=== PATIENT | male | born 1945 | race Caucasian/White ===

== ENCOUNTER 2017-06-22 12:29 | Emergency (ER) | payer MEDICAID, MEDICARE ==
[2017-06-22] MEDS ORDERED: Albuterol/Ipratropium 3.0-0.5 MG/3 ML Neb Soln NEB ONE (12:40)
[2017-06-22] MEDS ORDERED: Sodium Chloride 0.9% 1,000 ML IV SCH (12:45)
--- NOTE | 2017-06-22 12:46 | EDM.PDOC ---
ED HPI GENERAL MEDICAL PROBLEM - General Chief Complaint: General Stated Complaint: FROM DIALYSIS / NOT FEELING WELL Time Seen by Provider: 06/22/17 12:37 Source of Information: Reports: Patient, RN History Limitations: Reports: No Limitations - History of Present Illness INITIAL COMMENTS - FREE TEXT/NARRATIVE: 71 yo white male sent from dialysis for low oxygen saturation of 70's. Pt. did not get dialysis yet. PMHx. CVA Onset: Today Onset Date: 06/22/17 Onset Time: 12:30 Duration: Minutes: Location: Reports: Generalized Severity: Moderate Improves with: Reports: None Worsens with: Reports: None Context: Reports: Other (CKD) Associated Symptoms: Reports: Confusion - Related Data Allergies Allergy/AdvReac Type Severity Reaction Status Date / Time No Known Allergies Allergy Verified 06/22/17 13:00 Home Meds: Home Meds Calcitriol 0.5 mcg PO DAILY 01/08/15 [History] Clopidogrel [Plavix] 75 mg PO DAILY 01/08/15 [History] Digoxin 125 mcg PO DAILY 01/08/15 [History] Furosemide 40 mg PO DAILY 01/08/15 [History] Insulin Glargine,Hum.Rec.Anlog [Lantus Solostar] 27 unit SQ BEDTIME 01/08/15 [ History] Isosorbide Mononitrate [Isosorbide Mononitrate ER] 60 mg PO BID 01/08/15 [ History] Metoprolol Tartrate 150 mg PO BID 01/08/15 [History] NIFEdipine [Nifedical XL] 60 mg PO DAILY 01/08/15 [History] atorvaSTATin [Lipitor] 1 tab PO DAILY 01/08/15 [History] Aspirin 81 mg PO DAILY 04/22/15 [History] Multivitamin with Minerals [Multiple Vitamin] 1 tab PO DAILY 04/22/15 [History] Sevelamer Carbonate [Renvela] 1,600 mg PO TID 04/22/15 [History] hydrALAZINE [Apresoline] 50 mg PO BID 04/22/15 [History] Past Medical History Other Gastrointestinal History: right inguinal hernia Social & Family History - Tobacco Use Smoking Status *Q: Never Smoker Second Hand Smoke Exposure: No - Alcohol Use Days Per Week of Alcohol Use: 0 - Recreational Drug Use Recreational Drug Use: No - Living Situation & Occupation Living situation: Reports: Single, with Family Occupation: Retired ED ROS GENERAL - Review of Systems Review Of Systems: See Below Constitutional: Reports: Malaise, Weakness, Fatigue HEENT: Reports: No Symptoms Respiratory: Reports: Other (low pulse ox) Cardiovascular: Reports: No Symptoms Endocrine: Reports: No Symptoms GI/Abdominal: Reports: No Symptoms : Reports: No Symptoms Musculoskeletal: Reports: No Symptoms Skin: Reports: No Symptoms Neurological: Reports: No Symptoms Psychiatric: Reports: No Symptoms Hematologic/Lymphatic: Reports: No Symptoms Immunologic: Reports: No Symptoms ED EXAM, GENERAL - Physical Exam Exam: See Below Exam Limited By: No Limitations General Appearance: Alert, No Apparent Distress Eye Exam: Bilateral Eye: PERRL Ears: Normal External Exam Nose: Normal Inspection Throat/Mouth: Normal Inspection Head: Atraumatic, Normocephalic Neck: Normal Inspection Respiratory/Chest: No Respiratory Distress, Normal Breath Sounds, No Accessory Muscle Use, Chest Non-Tender GI/Abdominal: Normal Bowel Sounds Back Exam: Normal Inspection Extremities: Normal Inspection Neurological: Alert, Oriented Psychiatric: Normal Affect Skin Exam: Warm, Dry, Intact Lymphatic: No Adenopathy Course - Vital Signs Last Recorded V/S: Last Vital Signs Temp 37.4 C 06/22/17 12:41 Pulse 61 06/22/17 12:41 Resp 16 06/22/17 12:41 BP 177/62 H 06/22/17 12:41 Pulse Ox 75 L 06/22/17 12:41 - Orders/Labs/Meds Orders: Active Orders 24 hr Category Date Time Status EKG Documentation Completion [RC] STAT Care 06/22/17 12:39 Active RT Aerosol Therapy [RC] ASDIRECTED Care 06/22/17 12:40 Active B-TYPE NATRIURETIC PEPTIDE,BNP [CHEM] Stat Lab 06/22/17 14:13 Ordered LACTIC ACID [CHEM] Stat Lab 06/22/17 14:13 Ordered URINALYSIS W/MICROSCOPIC [UA W/MICROSCOPIC] [URIN] Stat Lab 06/22/17 13:07 Uncollected Sodium Chloride 0.9% [Normal Saline] 1,000 ml Med 06/22/17 12:45 Active IV ASDIRECTED Medication Orders Sodium Chloride (Normal Saline) 1,000 mls @ 50 mls/hr IV ASDIRECTED IVONNE Last Admin: 06/22/17 14:01 Dose: 50 mls/hr Labs: Laboratory Tests 1006/22/17 06/22/17 Range/Units 13:00 13:00 13:00 WBC 14.0 H (5.0-10.0) 10^3/uL RBC 3.06 L (4.6-6.2) 10^6/uL Hgb 10.0 L (14.0-18.0) g/dL Hct 31.7 L (40.0-54.0) % MCV 103.6 H D (80-100) fL MCH 32.7 (27.0-34.0) pg MCHC 31.5 L (33.0-35.0) g/dL Plt Count 180 D (150-450) 10^3/uL Neut % (Auto) 89.5 H (42.2-75.2) % Lymph % (Auto) 3.9 L (20.5-50.1) % [place] % (Auto) 6.4 (2-8) % Eos % (Auto) 0.1 L (1.0-3.0) % Baso % (Auto) 0.1 (0.0-1.0) % Sodium 138 (135-145) mmol/L Potassium 5.4 H (3.6-5.0) mmol/L Chloride 100 L (101-111) mmol/L Carbon Dioxide 25.0 (21.0-31.0) mmol/L Anion Gap 18.4 BUN 48 H (7-18) mg/dL Creatinine 6.4 H (0.6-1.3) mg/dL Est Cr Clr Drug Dosing 10.71 mL/min Estimated GFR (MDRD) 9 BUN/Creatinine Ratio 7.50 Glucose 190 H (74-105) mg/dL Calcium 8.8 (8.4-10.2) mg/dl Total Bilirubin 1.0 (0.2-1.0) mg/dL AST 16 (10-42) IU/L ALT 7 L (10-60) IU/L Alkaline Phosphatase 105 (42-121) IU/L Troponin I 0.08 H* (0.00-0.02) ng/ml Total Protein 6.8 (6.7-8.2) g/dl Albumin 3.5 (3.2-5.5) g/dl Globulin 3.3 Albumin/Globulin Ratio 1.06 Digoxin 1.4 (0-2.5) ng/ml Meds: Medications Generic Name Dose Route Start Last Admin Trade Name Juani PRN Reason Stop Dose Admin Sodium Chloride 1,000 mls @ 50 mls/hr 06/22/17 12:45 06/22/17 14:01 Normal Saline IV 50 mls/hr ASDIRECTED IVONNE Administration Discontinued Medications Generic Name Dose Route Start Last Admin Trade Name Juani PRN Reason Stop Dose Admin Albuterol/Ipratropium 3 ml 06/22/17 12:40 06/22/17 12:59 Duoneb 3.0-0.5 Mg/3 Ml NEB 06/22/17 12:41 3 ml ONETIME ONE Administration Departure - Departure Time of Disposition: 15:10 Disposition: DC/Tfer to Acute Hospital 02 Condition: Fair Clinical Impression: CKD (chronic kidney disease) requiring chronic dialysis Congestive heart failure Qualifiers: Congestive heart failure type: unspecified congestive heart failure type Congestive heart failure chronicity: unspecified congestive heart failure chronicity Qualified Code(s): I50.9 - Heart failure, unspecified - Discharge Information Forms: ED Department Discharge, Interfacility Transfer EMTALA - My Orders Last 24 Hours: My Active Orders 06/22/17 12:39 EKG Documentation Completion [RC] STAT 06/22/17 12:40 RT Aerosol Therapy [RC] ASDIRECTED 06/22/17 12:45 Sodium Chloride 0.9% [Normal Saline] 1,000 ml IV ASDIRECTED 06/22/17 13:07 URINALYSIS W/MICROSCOPIC [UA W/MICROSCOPIC] [URIN] Stat 06/22/17 14:13 B-TYPE NATRIURETIC PEPTIDE,BNP [CHEM] Stat LACTIC ACID [CHEM] Stat - Assessment/Plan Last 24 Hours: My Active Orders 06/22/17 12:39 EKG Documentation Completion [RC] STAT 06/22/17 12:40 RT Aerosol Therapy [RC] ASDIRECTED 06/22/17 12:45 Sodium Chloride 0.9% [Normal Saline] 1,000 ml IV ASDIRECTED 06/22/17 13:07 URINALYSIS W/MICROSCOPIC [UA W/MICROSCOPIC] [URIN] Stat 06/22/17 14:13 B-TYPE NATRIURETIC PEPTIDE,BNP [CHEM] Stat LACTIC ACID [CHEM] Stat
[2017-06-22 12:58] VITALS: BP 177/62
--- NOTE | 2017-06-22 14:30 | CR ---
Clinical history: 71-year-old male shortness of breath and oxygen saturation in the 70s. Interpretation: Abnormal. *Chronic cardiomegaly, pulmonary venous congestion and dependent subpulmonic pleural effusion right b ase with possible underlying atelectasis or lower lobe pneumonia on the right. Sternotomy wires and cardiac pacemaker (leads intact). Note: Left lung base relatively clearer than on 22 April 2015 exam but generalized relative increase venous congestion i.e. cardiovascular decompensation today. No lung mass lesion. No pneumothorax. CONCLUSION: CHF.
--- NOTE | 2017-06-26 10:14 | EKG ---
06/22/2017- TAMARA MCKENZIE I reviewed the EKG and appeared to be paced with possible AV node dissociation. Otherwise, I agree with the machine reading. [facility] /[id number]
== END 2017-06-22 16:18 ==
LOC: DL.ED 12:29
DX: I50.9 Heart failure, unspecified (principal); N18.6 End stage renal disease; Z79.899 Other long term (current) drug therapy
CPT/HCPCS: 36415; 71010; 80053; 80162; 84484; 85025; 93005; 94640; 96360; 96361; 99284; J7030; 93010

== ENCOUNTER 2017-08-31 16:36 | Emergency (ER) | payer MEDICARE ==
[2017-08-31 17:23] VITALS: BP 168/69
== END 2017-08-31 16:57 | disposition left against medical advice (07) ==
LOC: DL.ED 16:36
DX: Z53.21 Procedure and treatment not carried out due to patient leaving prior to being seen by health care provider (principal)

== ENCOUNTER 2017-11-12 15:47 | Emergency (ER) | payer MEDICAID, MEDICARE ==
--- NOTE | 2017-11-12 16:37 | EDM.PDOC ---
ED HPI GENERAL MEDICAL PROBLEM - General Chief Complaint: Eye Problems Stated Complaint[facility],BLURRY Time Seen by Provider: 11/12/17 16:20 Source of Information: Reports: Patient History Limitations: Reports: No Limitations - History of Present Illness INITIAL COMMENTS - FREE TEXT/NARRATIVE: This 72 yo male patient reports to the ED due to decreased vision in his left eye. The patient reports that he started to notice reduced vision 2-3 days ago, but then reports that it may have started quite some time ago. The patient reports things are very blurry out of his left eye. The patient reports he has noticed some drainage from his left eye over the past 2-3 days also. An initial call to the ED was placed from dialysis describing the patient as being in pain (intermittent) with vision loss in his left eye. The patient reports that his vision may have been getting worse over a longer amount of time, but could not give a timeline for when his symptoms actually started. The patient denied any pain in his left eye at the time of examination. Onset: Unknown/Unsure Duration: Constant, Getting Worse Quality: Reports: Other (vision decline in left eye) Severity: Severe Improves with: Reports: None Worsens with: Reports: None Context: Denies: Lifting, Sick Contact, Trauma - Related Data Allergies Allergy/AdvReac Type Severity Reaction Status Date / Time No Known Allergies Allergy Verified 11/12/17 17:00 Home Meds: Home Meds Calcitriol 0.5 mcg PO DAILY 01/08/15 [History] Clopidogrel [Plavix] 75 mg PO DAILY 01/08/15 [History] Digoxin 125 mcg PO DAILY 01/08/15 [History] Furosemide 40 mg PO DAILY 01/08/15 [History] Insulin Glargine,Hum.Rec.Anlog [Lantus Solostar] 27 unit SQ BEDTIME 01/08/15 [ History] Isosorbide Mononitrate [Isosorbide Mononitrate ER] 60 mg PO BID 01/08/15 [ History] Metoprolol Tartrate 150 mg PO BID 01/08/15 [History] NIFEdipine [Nifedical XL] 60 mg PO DAILY 01/08/15 [History] atorvaSTATin [Lipitor] 1 tab PO DAILY 01/08/15 [History] Aspirin 81 mg PO DAILY 04/22/15 [History] Multivitamin with Minerals [Multiple Vitamin] 1 tab PO DAILY 04/22/15 [History] Sevelamer Carbonate [Renvela] 1,600 mg PO TID 04/22/15 [History] hydrALAZINE [Apresoline] 50 mg PO BID 04/22/15 [History] Past Medical History HEENT History: Reports: Impaired Vision Cardiovascular History: Reports: CAD, Pacemaker, Prior Cardiac Arrest Other Cardiovascular History: Pt states that he is unsure if he had a heart attack or not- long scar noted to mid chest. Other Gastrointestinal History: right inguinal hernia Genitourinary History: Reports: Dialysis, Renal Disease Neurological History: Reports: CVA, Speech Problems Other Neuro History: States had stroke "a couple years ago." Endocrine/Metabolic History: Reports: Diabetes, Type II Hematologic History: Reports: Anemia - Past Surgical History Cardiovascular Surgical History: Reports: Pacer Social & Family History - Family History Family Medical History: Noncontributory - Tobacco Use Smoking Status *Q: Never Smoker Second Hand Smoke Exposure: No - Caffeine Use Caffeine Use: Reports: None - Alcohol Use Days Per Week of Alcohol Use: 0 - Recreational Drug Use Recreational Drug Use: No - Living Situation & Occupation Living situation: Reports: Single, with Family Occupation: Retired ED ROS GENERAL - Review of Systems Review Of Systems: ROS reveals no pertinent complaints other than HPI. ED EXAM GENERAL W FULL EYE - Physical Exam Exam: See Below Exam Limited By: No Limitations General Appearance: Alert, WD/WN, Mild Distress, Thin Eye Exam: Left Eye: Vision Changes (The patient has a cataract in the left eye making complete evaluation very difficult), Bilateral Eye: EOMI, Normal Inspection Eyelids: Right: Normal Appearance, Left: Edema (mild) Conjunctiva & Sclera: Right: Normal Appearance, Left: Injected Cornea Exam: Right: Normal Appearance, Left: Cloudy Cornea Extraocular Movements: Bilateral: Intact Pupils: Normal Accommodation Pupillary Size: Bilateral: 4 mm Pupillary Reaction: Bilateral: Brisk Ears: Normal External Exam, Normal Canal, Hearing Grossly Normal, Normal TMs Nose: Normal Inspection, Normal Mucosa, No Blood Throat/Mouth: Normal Inspection, Normal Lips, Normal Teeth, Normal Gums, Normal Oropharynx, Normal Voice, No Airway Compromise Head: Atraumatic, Normocephalic Neck: Normal Inspection, Supple, Non-Tender, Full Range of Motion Respiratory/Chest: No Respiratory Distress, Lungs Clear, Normal Breath Sounds, No Accessory Muscle Use, Chest Non-Tender Cardiovascular: Normal Peripheral Pulses, Regular Rate, Rhythm, No Edema, No Gallop, No JVD, No Murmur, No Rub GI/Abdominal: Normal Bowel Sounds, Soft, Non-Tender, No Organomegaly, No Distention, No Abnormal Bruit, No Mass (Male) Exam: Deferred Rectal (Males) Exam: Deferred Back Exam: Normal Inspection, Full Range of Motion, NT Extremities: Normal Inspection, Normal Range of Motion, Non-Tender, Normal Capillary Refill, No Pedal Edema Neurological: Alert, Oriented, CN II-XII Intact, Normal Cognition, Normal Gait, Normal Reflexes, No Motor/Sensory Deficits Psychiatric: Normal Affect, Normal Mood Skin Exam: Warm, Dry, Intact, Normal Color, No Rash Lymphatic: No Adenopathy Course - Vital Signs Last Recorded V/S: Last Vital Signs Temp 36.5 C 11/12/17 16:53 Pulse 65 11/12/17 16:53 Resp 12 11/12/17 16:53 BP 163/61 H 11/12/17 16:53 Pulse Ox 89 L 11/12/17 16:53 - Orders/Labs/Meds Labs: Laboratory Tests 11/12/17 11/12/17 Range/Units 16:30 16:30 WBC 8.7 (5.0-10.0) 10^3/uL RBC 4.03 L (4.6-6.2) 10^6/uL Hgb 13.0 L D (14.0-18.0) g/dL Hct 38.3 L (40.0-54.0) % MCV 95.0 D (80-100) fL MCH 32.3 (27.0-34.0) pg MCHC 33.9 (33.0-35.0) g/dL Plt Count 194 (150-450) 10^3/uL Neut % (Auto) 82.3 H (42.2-75.2) % Lymph % (Auto) 8.5 L (20.5-50.1) % [place] % (Auto) 7.4 (2-8) % Eos % (Auto) 1.6 (1.0-3.0) % Baso % (Auto) 0.2 (0.0-1.0) % Sodium 134 L (135-145) mmol/L Potassium 4.0 (3.6-5.0) mmol/L Chloride 100 L (101-111) mmol/L Carbon Dioxide 23.0 (21.0-31.0) mmol/L Anion Gap 15.0 BUN 22 H D (7-18) mg/dL Creatinine 2.6 H D (0.6-1.3) mg/dL Est Cr Clr Drug Dosing TNP Estimated GFR (MDRD) 24 BUN/Creatinine Ratio 8.46 Glucose 319 H (74-105) mg/dL Calcium 8.2 L (8.4-10.2) mg/dl Total Bilirubin 0.8 (0.2-1.0) mg/dL AST 15 (10-42) IU/L ALT 8 L (10-60) IU/L Alkaline Phosphatase 104 (42-121) IU/L Total Protein 6.6 L (6.7-8.2) g/dl Albumin 3.3 (3.2-5.5) g/dl Globulin 3.3 Albumin/Globulin Ratio 1.00 Departure - Departure Time of Disposition: 17:09 Disposition: Home, Self-Care 01 Condition: Fair Clinical Impression: Acute conjunctivitis of left eye Qualifiers: Acute conjunctivitis type: bacterial Qualified Code(s): H10.32 - Unspecified acute conjunctivitis, left eye - Discharge Information Instructions: Bacterial Conjunctivitis Forms: ED Department Discharge Care Plan Goals: The patient was advised of the examination, lab and CT results during the visit. The patient was given a script for Polytrim to place 1 drop into his left eye 4 times per day for 7 days. The patient should follow-up with his eye doctor as soon as possible. If the patient has any additional symptoms or concerns, the patient should follow-up with his primary care facility or return to the emergency department.
--- NOTE | 2017-11-12 16:49 | CT ---
Clinical history: 72-year-old male pain and visual changes left eye (conjunctivitis and cataracts). N o known trauma. Scan technique: Volume acquisition of data emergency unenhanced CT scan of the head and brain obtaine d with the patient lying supine on the Siemens multi slice CT scanner [place], [place]. All data archived in the PACS system for storage study (bone/brain windows). Interpretation: Abnormal. Uniformly thick bony calvarium without sign of skull fracture, underlying brain contusion or epidural /subdural hematoma. 2. Symmetric clear pneumatization of the paranasal and mastoid sinuses. 3. Large area of old infarct and encephalomalacia middle cerebral artery circulation, on the left, th at was present on previous exam of the head i.e. CT scan 08 Jan 2015. 4. Generalized moderate severe but symmetric cerebral cortical atrophy and underlying ventricular sys tem also unchanged. Physiologic midline pineal and symmetric normal choroid plexus calcifications. 5. No new signs of supratentorial or posterior fossa mass lesion. Cerebellum and brainstem unremarkab le. 6. No sign of acute new intracerebral, intraventricular or subarachnoid bleed. CONCLUSION: Chronic abnormalities primarily left cerebral hemisphere (see above) and atrophy unchange d since December 2014. No new signs of intracranial mass, hydrocephalus or bleed.
[2017-11-12 16:58] LABS: CHLORIDE,CL 100 mmol/L (101-111); SODIUM,NA 134 mmol/L (135-145)
[2017-11-12 16:59] VITALS: BP 163/61
== END 2017-11-12 17:25 | disposition home or self-care (01) ==
LOC: DL.ED 15:47
DX: H10.32 Unspecified acute conjunctivitis, left eye (principal); E11.9 Type 2 diabetes mellitus without complications; Z79.899 Other long term (current) drug therapy; Z79.82 Long term (current) use of aspirin; Z79.4 Long term (current) use of insulin
CPT/HCPCS: 36415; 70450; 80053; 85025; 99283; 99284

== ENCOUNTER 2018-02-01 12:01 | Emergency (ER) | payer MEDICARE ==
--- NOTE | 2018-02-01 12:09 | EDM.PDOC ---
ED HPI GENERAL MEDICAL PROBLEM - General Chief Complaint: Neurological Problem Stated Complaint: WEAKNESS. FROM DIALYSIS Time Seen by Provider: 02/01/18 12:08 Source of Information: Reports: Patient, Old Records, RN, RN Notes Reviewed, Other (dialysis nurses) History Limitations: Reports: Altered Mental Status - History of Present Illness INITIAL COMMENTS - FREE TEXT/NARRATIVE: Pt sent from dialysis with nurses reporting "pt is too unstable to have dialysis here today". Pt denies any complaints other than his chronic problems. The staff from the dialysis unit report the pt is weak, unsteady with balance, and confused. Pt is set up for dialysis 3 times a week but only attends about twice a week. He states he was in [place], but has return home to live on his own. Onset: Unknown/Unsure Duration: Constant Location: Reports: Generalized Severity: Severe Improves with: Reports: None Worsens with: Reports: None Associated Symptoms: Reports: No Other Symptoms - Related Data Allergies Allergy/AdvReac Type Severity Reaction Status Date / Time No Known Allergies Allergy Verified 02/01/18 12:20 Home Meds: Home Meds Calcitriol 0.5 mcg PO DAILY 01/08/15 [History] Clopidogrel [Plavix] 75 mg PO DAILY 01/08/15 [History] Digoxin 125 mcg PO DAILY 01/08/15 [History] Furosemide 40 mg PO DAILY 01/08/15 [History] Insulin Glargine,Hum.Rec.Anlog [Lantus Solostar] 27 unit SQ BEDTIME 01/08/15 [ History] Isosorbide Mononitrate [Isosorbide Mononitrate ER] 60 mg PO BID 01/08/15 [ History] Metoprolol Tartrate 150 mg PO BID 01/08/15 [History] NIFEdipine [Nifedical XL] 60 mg PO DAILY 01/08/15 [History] atorvaSTATin [Lipitor] 1 tab PO DAILY 01/08/15 [History] Aspirin 81 mg PO DAILY 04/22/15 [History] Multivitamin with Minerals [Multiple Vitamin] 1 tab PO DAILY 04/22/15 [History] Sevelamer Carbonate [Renvela] 1,600 mg PO TID 04/22/15 [History] hydrALAZINE [Apresoline] 50 mg PO BID 04/22/15 [History] Past Medical History HEENT History: Reports: Impaired Vision Cardiovascular History: Reports: CAD, Pacemaker, Prior Cardiac Arrest Other Cardiovascular History: Pt states that he is unsure if he had a heart attack or not- long scar noted to mid chest. Other Gastrointestinal History: right inguinal hernia Genitourinary History: Reports: Dialysis, Renal Disease Neurological History: Reports: CVA, Speech Problems Other Neuro History: States had stroke "a couple years ago." Psychiatric History: Reports: Dementia Endocrine/Metabolic History: Reports: Diabetes, Type II Hematologic History: Reports: Anemia - Past Surgical History Cardiovascular Surgical History: Reports: Pacer Social & Family History - Family History Family Medical History: Noncontributory - Caffeine Use Caffeine Use: Reports: None - Living Situation & Occupation Living situation: Reports: Single, with Family Occupation: Retired ED ROS GENERAL - Review of Systems Review Of Systems: Unable To Obtain (pt confused) ED EXAM, GENERAL - Physical Exam Exam: See Below Exam Limited By: Altered Mental Status General Appearance: Alert, Other (chronically ill appearing) Nose: Normal Inspection Throat/Mouth: Normal Voice, No Airway Compromise Head: Atraumatic, Normocephalic Neck: Normal Inspection, Full Range of Motion Respiratory/Chest: No Respiratory Distress, No Accessory Muscle Use, Decreased Breath Sounds, Crackles, Rales Cardiovascular: Regular Rate, Rhythm, No Edema GI/Abdominal: Normal Bowel Sounds, Soft, Non-Tender, No Distention. No: Guarding, Rigid, Rebound (Male) Exam: Deferred Rectal (Males) Exam: Deferred Back Exam: Normal Inspection Extremities: Normal Inspection Neurological: Alert, Confused, Memory Loss Recent Events, Other (oriented to person and place only. Generalized weakness, unsteady gait.) Psychiatric: Normal Mood Skin Exam: Warm, Dry, Pallor EKG INTERPRETATION EKG Date: 02/01/18 Time: 13:10 Rhythm: Other (PACED) Rate (Beats/Min): 91 Comparison: No Change Course - Vital Signs Last Recorded V/S: Last Vital Signs Temp 37.0 C 02/01/18 12:05 Pulse 97 02/01/18 12:05 Resp 16 02/01/18 12:05 BP 164/87 H 02/01/18 12:05 Pulse Ox 87 L 02/01/18 12:05 - Orders/Labs/Meds Orders: Active Orders 24 hr Category Date Time Status EKG 12 Lead [EKG Documentation Completion] [RC] STAT Care 02/01/18 12:32 Active Peripheral IV Care [RC] . DIRECTED Care 02/01/18 12:33 Active Chest 1V Frontal [CR] Stat Exams 02/01/18 12:32 Taken CULTURE BLOOD [BC] Stat Lab 02/01/18 12:42 Received CULTURE BLOOD [BC] Stat Lab 02/01/18 12:43 Received Sodium Chloride 0.9% [Saline Flush] Med 02/01/18 12:32 Active 10 ml FLUSH ASDIRECTED PRN Blood Culture x2 Reflex Set [OM.PC] Stat Oth 02/01/18 12:33 Ordered Peripheral IV Insertion Adult [OM.PC] Stat Oth 02/01/18 12:32 Ordered Medication Orders Sodium Chloride (Saline Flush) 10 ml FLUSH ASDIRECTED PRN PRN Reason: Keep Vein Open Last Admin: 02/01/18 13:07 Dose: 10 ml Labs: Laboratory Tests 02/01/18 02/01/18 02/01/18 Range/Units 12:40 12:40 12:40 WBC 10.2 H (5.0-10.0) 10^3/uL RBC 3.33 L (4.6-6.2) 10^6/uL Hgb 10.8 L D (14.0-18.0) g/dL Hct 33.0 L (40.0-54.0) % MCV 99.1 D (80-100) fL MCH 32.4 (27.0-34.0) pg MCHC 32.7 L (33.0-35.0) g/dL Plt Count 225 (150-450) 10^3/uL Neut % (Auto) 90.4 H (42.2-75.2) % Lymph % (Auto) 4.0 L (20.5-50.1) % [place] % (Auto) 4.9 (2-8) % Eos % (Auto) 0.6 L (1.0-3.0) % Baso % (Auto) 0.1 (0.0-1.0) % PT 9.9 (9.0-12.0) SEC INR 1.0 (0.9-1.2) APTT 25.7 (22.0-34.0) SEC Sodium 135 (135-145) mmol/L Potassium 4.3 (3.6-5.0) mmol/L Chloride 96 L (101-111) mmol/L Carbon Dioxide 24.0 (21.0-31.0) mmol/L Anion Gap 19.3 BUN 60 H D (7-18) mg/dL Creatinine 6.3 H D (0.6-1.3) mg/dL Est Cr Clr Drug Dosing 9.08 mL/min Estimated GFR (MDRD) 9 BUN/Creatinine Ratio 9.52 Glucose 422 H* (74-105) mg/dL Lactic Acid (0.5-2.2) mmol/L Calcium 9.0 (8.4-10.2) mg/dl Phosphorus 4.9 H (2.5-4.6) mg/dL Magnesium 1.9 (1.8-2.5) mg/dL Total Bilirubin 0.4 (0.2-1.0) mg/dL AST 12 (10-42) IU/L ALT 6 L (10-60) IU/L Alkaline Phosphatase 105 (42-121) IU/L B-Natriuretic Peptide > 5000 H (0-100) pg/ml Total Protein 6.8 (6.7-8.2) g/dl Albumin 3.1 L (3.2-5.5) g/dl Globulin 3.7 Albumin/Globulin Ratio 0.84 Digoxin (0-2.5) ng/ml 02/01/18 02/01/18 Range/Units 12:40 12:40 WBC (5.0-10.0) 10^3/uL RBC (4.6-6.2) 10^6/uL Hgb (14.0-18.0) g/dL Hct (40.0-54.0) % MCV (80-100) fL MCH (27.0-34.0) pg MCHC (33.0-35.0) g/dL Plt Count (150-450) 10^3/uL Neut % (Auto) (42.2-75.2) % Lymph % (Auto) (20.5-50.1) % [place] % (Auto) (2-8) % Eos % (Auto) (1.0-3.0) % Baso % (Auto) (0.0-1.0) % PT (9.0-12.0) SEC INR (0.9-1.2) APTT (22.0-34.0) SEC Sodium (135-145) mmol/L Potassium (3.6-5.0) mmol/L Chloride (101-111) mmol/L Carbon Dioxide (21.0-31.0) mmol/L Anion Gap BUN (7-18) mg/dL Creatinine (0.6-1.3) mg/dL Est Cr Clr Drug Dosing mL/min Estimated GFR (MDRD) BUN/Creatinine Ratio Glucose (74-105) mg/dL Lactic Acid 1.1 (0.5-2.2) mmol/L Calcium (8.4-10.2) mg/dl Phosphorus (2.5-4.6) mg/dL Magnesium (1.8-2.5) mg/dL Total Bilirubin (0.2-1.0) mg/dL AST (10-42) IU/L ALT (10-60) IU/L Alkaline Phosphatase (42-121) IU/L B-Natriuretic Peptide (0-100) pg/ml Total Protein (6.7-8.2) g/dl Albumin (3.2-5.5) g/dl Globulin Albumin/Globulin Ratio Digoxin 0.2 (0-2.5) ng/ml Meds: Medications Generic Name Dose Route Start Last Admin Trade Name Freq PRN Reason Stop Dose Admin Sodium Chloride 10 ml 02/01/18 12:32 02/01/18 13:07 Saline Flush FLUSH 10 ml ASDIRECTED PRN Administration Keep Vein Open - Radiology Interpretation Free Text/Narrative:: CXR: abnormal but unchanged chest compared to prior studies, see Rad. report. Departure - Departure Time of Disposition: 14:26 Disposition: DC/Tfer to Acute Hospital 02 Condition: Serious Clinical Impression: CKD (chronic kidney disease) requiring chronic dialysis, Hypoxia Congestive heart failure Qualifiers: Heart failure type: unspecified Heart failure chronicity: chronic Qualified Code(s): I50.9 - Heart failure, unspecified Hyperglycemia due to type 2 diabetes mellitus Qualifiers: Diabetes mellitus termite treater insulin use: with termite treater use Qualified Code(s): E11.65 - Type 2 diabetes mellitus with hyperglycemia; Z79.4 - termite treater helper (current ) use of insulin Altered mental status, unspecified Qualifiers: Altered mental status type: unspecified Qualified Code(s): R41.82 - Altered mental status, unspecified - Discharge Information Referrals: Chester Hernandez MD [Primary Care Provider] - Forms: ED Department Discharge, Interfacility Transfer EMTALA - My Orders Last 24 Hours: My Active Orders 02/01/18 12:32 EKG 12 Lead [EKG Documentation Completion] [RC] STAT Chest 1V Frontal [CR] Stat Sodium Chloride 0.9% [Saline Flush] 10 ml FLUSH ASDIRECTED PRN Peripheral IV Insertion Adult [OM.PC] Stat 02/01/18 12:33 Peripheral IV Care [RC] . DIRECTED Blood Culture x2 Reflex Set [OM.PC] Stat 02/01/18 12:42 CULTURE BLOOD [BC] Stat 02/01/18 12:43 CULTURE BLOOD [BC] Stat - Assessment/Plan Last 24 Hours: My Active Orders 02/01/18 12:32 EKG 12 Lead [EKG Documentation Completion] [RC] STAT Chest 1V Frontal [CR] Stat Sodium Chloride 0.9% [Saline Flush] 10 ml FLUSH ASDIRECTED PRN Peripheral IV Insertion Adult [OM.PC] Stat 02/01/18 12:33 Peripheral IV Care [RC] . DIRECTED Blood Culture x2 Reflex Set [OM.PC] Stat 02/01/18 12:42 CULTURE BLOOD [BC] Stat 02/01/18 12:43 CULTURE BLOOD [BC] Stat
[2018-02-01 12:20] VITALS: BP 164/87
[2018-02-01] MEDS ORDERED: Sodium Chloride 0.9% 10 ML Syringe FLUSH PRN (12:32)
[2018-02-01 13:09] LABS: CHLORIDE,CL 96 mmol/L (101-111); SODIUM,NA 135 mmol/L (135-145)
--- NOTE | 2018-02-01 15:11 | CR ---
Clinical history: 72-year-old male hypoxia (near syncope). Interpretation: Markedly abnormal but heart size within normal limits and decreased cephalization of flow when compared to 22 June 2017 exam reveals apparent generalized heart failure with large depe ndent right pleural effusion. Persistent asymmetric dense consolidation lower half of the right hemithorax chronic or recurrent eff usion with possibility of underlying atelectasis/infiltrate. Clinical? Sternotomy and cardiac pacemak er (leads intact). Possible dependent pleural fluid accumulation in the left base. CONCLUSION: Probable pulmonary venous congestion with bibasilar pleural effusions (subtle relative im provement radiographically since 22 June 2017 and 22 April 2015 exam this patient with cardiac pa cemaker was had open heart surgery). Now normal cardiac silhouette. Clinical correlation?
--- NOTE | 2018-02-06 13:13 | EKG ---
02/01/2018 - TAMARA MCKENZIE - TIME: 1:10 p.m. FINDINGS: EKG showing ventricular paced complexes, rate at 91. [facility] /[id number]
== END 2018-02-01 15:39 ==
LOC: DL.ED 12:01
DX: E11.65 Type 2 diabetes mellitus with hyperglycemia (principal); E11.22 Type 2 diabetes mellitus with diabetic chronic kidney disease; R09.02 Hypoxemia; N18.9 Chronic kidney disease, unspecified; I50.9 Heart failure, unspecified; R41.82 Altered mental status, unspecified; Z79.899 Other long term (current) drug therapy; Z79.4 Long term (current) use of insulin
CPT/HCPCS: 36415; 71045; 80053; 80162; 83605; 83735; 83880; 84100; 85025; 85610; 85730; 87040; 93005; 99285; J7050; 93010; 99284